=== PATIENT | female | born 1985 | race Caucasian/White ===

== ENCOUNTER → 2016-12-03 | Outpatient (REF) ==
[~2016-12-03] MED LIST: FERROUS SULFATE1 GRA; PRENATAL VITAMI1 TAB PO
== END ==
LOC: WSOH 17:45
DX: Z02.89 Encounter for other administrative examinations (principal)

== ENCOUNTER 2017-11-15 06:20 | Day surgery (SDC) | payer OTHER ==
[~2017-11-15] VITALS: Ht 167.6 cm; Wt 52.7 kg
[~2017-11-15 06:20] MED LIST changes: +ADDERALL5 MG PO; +AVIANE 0.02 MG-1 TAB PO; +NATURAL MAGNES200 MG PO; +PROZAC 20MG20 MG PO; +ULTRAM 50MG TAB50 MG PO; +VITAMIND3 5000 PO
[2017-11-15 06:59] VITALS: BP 130/99; PULSE 100; TEMP 98.1
[2017-11-15] MEDS ORDERED: AVIANE 0.02 MG-1 TAB PO (07:07)
[2017-11-15 08:40] VITALS: BP 148/104; PULSE 128; TEMP 97.5
[2017-11-15 08:55] VITALS: BP 137/100; PULSE 116
[2017-11-15 09:10] VITALS: BP 135/99; PULSE 115
[2017-11-15 09:25] VITALS: BP 134/90; PULSE 116
== END 2017-11-15 09:47 | disposition home or self-care (01) ==
LOC: SDCO 06:20
DX: R19.4 Change in bowel habit (principal); K58.9 Irritable bowel syndrome, unspecified; E55.9 Vitamin D deficiency, unspecified
CPT/HCPCS: OP; J2250; J2405; J3010; J7030

== ENCOUNTER → 2020-02-26 | Outpatient (CLI) | payer OTHER ==
[2020-02-26 10:19] LABS: COLLECTION METHOD CLEAN CATCH
[2020-02-26 10:26] LABS: BASO # 0.1 (0.0-0.2); BASO % 0.8 % (0.0-2.0); EOS # 0.1 (0.0-0.7); EOS % 1.1 % (0-4.0); GRAN # 3.9 (1.4-6.5); GRAN % 63.1 % (42.2-75.2); HEMATOCRIT 42.3 % (37.0-47.0); HEMOGLOBIN 14.1 g/dl (12.5-16.0); LYMPH # 1.7 (1.2-3.4); LYMPH % 27.6 % (20.0-51.0); MEAN CELL VOLUME 95 fl (80.0-100.0); MEAN CORPUSCULAR HEMOGLOBIN 32 pg (27.0-31.0); MEAN CORPUSCULAR HGB CONC 33 g/dl (33.0-37.0); MEAN PLATELET VOLUME 10.7 fl (7.4-10.4); MONO # 0.4 (0.1-0.6); MONO % 7.1 % (1.7-9.3); PLATELET COUNT 294 K/mm3 (130-400); RED BLOOD COUNT 4.44 M/mm3 (4.10-5.30); REDCELL DISTRIBUTION WIDTH-CV 11.9 % (11.5-14.5)
[2020-02-26 10:33] LABS: MUCOUS Present /lpf; PH 6 (5-8); URINE APPEARANCE Hazy; URINE BACTERIA None Seen /hpf; URINE BILIRUBIN Negative (NEGATIVE); URINE BLOOD Negative (NEGATIVE); URINE COLOR Yellow; URINE GLUCOSE Negative (NEGATIVE); URINE KETONE Negative (NEGATIVE); URINE LEUKOCYTE ESTERASE Negative (NEGATIVE); URINE NITRATE Negative (NEGATIVE); URINE PROTEIN(semi-quant) 1+ (NEGATIVE); URINE RBC 0-2 /hpf; URINE UROBILINOGEN Negative (NEGATIVE)
[2020-02-26 10:40] LABS: ALBUMIN 4.5 gm/dL (3.5-5.0); BILIRUBIN,TOTAL 0.6 mg/dL (0.0-1.0); CALCIUM 9.9 mg/dL (8.4-10.2); CREATININE, serum 0.7 (0.52-1.25); POTASSIUM 4.1 mmol/L (3.4-5.0); TOTAL PROTEIN 7.6 gm/dL (6.4-8.2)
[2020-02-26 11:09] LABS: TSH w REFLEX 1.43 uIU/mL (0.465-4.680)
== END ==
LOC: COL.LAB 09:48
PROVIDERS: Family Medicine
DX: Z00.00 Encounter for general adult medical examination without abnormal findings (principal)